=== PATIENT | female | born 1985 | race Caucasian/White ===

== ENCOUNTER 2021-11-12 10:39 | Emergency (ER) | payer OTHER ==
[~2021-11-12 10:39] MED LIST: ELIQUIS 5 MG TAB5 MG PO; ELIQUIS5 MG PO; LEVOFLOXACIN500 MG PO; TYLENOL 325MG325 MG PO
[2021-11-12 12:19] LABS: HEMOGLOBIN 14.5 gm/dl (12.3-15.3); RED BLOOD COUNT 4.67 M/UL (4.00-5.10)
[2021-11-12 12:46] LABS: BUN/CREATININE RATIO 18 (0-10)
== END 2021-11-12 18:00 | disposition home or self-care (01) ==
LOC: ER1 10:39
PROVIDERS: Emergency Medicine
DX: R07.89 Other chest pain (principal); R06.82 Tachypnea, not elsewhere classified; E66.9 Obesity, unspecified; F17.210 Nicotine dependence, cigarettes, uncomplicated; Z86.711 Personal history of pulmonary embolism; Z86.718 Personal history of other venous thrombosis and embolism; Z87.442 Personal history of urinary calculi; Z90.89 Acquired absence of other organs
CPT/HCPCS: 71045; 80053; 81001; 82550; 82553; 83605; 83690; 84484; 84703; 85025; 87040; 93005; 99285; Q9967